=== PATIENT | male | born 1970 | race Caucasian/White ===

== ENCOUNTER 2024-01-13 02:48 | Emergency (ER) | payer SELFPAY ==
[2024-01-13 03:38] LABS: #Lymphocytes 0.5 thou/uL (1.20-3.40); #Monocytes 0.5 thou/uL (0.11-0.59); #Neutrophils 2.8 thou/uL (1.40-6.50); %Basophils 1.3 % (0.0-1.0); %Eosinophils 0.2 % (0.0-10.0); %Lymphocytes 13.7 % (21.0-51.0); %Monocytes 12.4 % (0.0-10.0); %Neutrophils 72.4 % (42.0-75.0)
[2024-01-13 03:39] LABS: Hematocrit 41.4 % (42.0-52.0); Hemoglobin 14.3 g/dL (14.0-18.0); Mean Corpuscular HGB CONC 34.5 g/dL (32.0-36.0); Mean Corpuscular Volume 101.4 fl (78.0-98.0); RBC Distribution Width 13.7 % (11.5-14.5); Red Blood Cell (RBC) Count 4.08 mill/uL (4.70-6.10); White Blood Cell (WBC) Count 3.8 10x3/uL (4.8-10.8)
[2024-01-13 03:47] LABS: INR-International Normal Ratio 2.5; Prothrombin Time 28.2 sec (12.0-14.7)
[2024-01-13 03:48] LABS: PTT 39.9 sec (22.9-36.1)
[2024-01-13 03:59] LABS: Anisocytosis SLIGHT = 6-15 cells (100X) (0-5/hpf); Burr Cells SLIGHT = 2-5 cells (100X) (0-1/hpf); MDiff Complete? YES; Macrocytosis SLIGHT = 6-15 cells (100X) (0-5/hpf); Mean Platelet Volume 10.7 fL (7.4-10.4); Platelet Adequacy Comment Appears Decreased; Platelet Count 73 10x3/uL (130-400)
[2024-01-13] MEDS ORDERED: Lactulose 20 GM (30 mL) UDCUP PO SCH (04:00)
[2024-01-13 04:06] LABS: Acetaminophen Less than 10 mcg/mL (10.0-30.0); Alcohol Less than 10.0 mg/dL (Less than 10); Lipase 25 U/L (8-78); Magnesium 1.4 mg/dL (1.6-2.6); Salicylate Less than 8.0 mg/dL (15.0-30.0)
[2024-01-13 04:08] LABS: ALT (SGPT) 48 U/L (8-55); AST (SGOT) 73 U/L (5-34); Albumin 3.3 g/dL (3.5-5.0); Alkaline Phosphatase 185 U/L (40-110); Anion Gap 20 mmol/L (10-20); BUN (Urea Nitrogen) 6 mg/dL (8.4-25.7); Bilirubin, Total 15.6 mg/dL (0.2-1.2); Calc. Creatinine Clearance 0 mL/min (70-130); Calcium 8.4 mg/dL (7.8-10.44); Carbon Dioxide 29 mmol/L (22-29); Chloride 93 mmol/L (98-107); Estimated GFR 105; Globulin 2.8 g/dL (2.4-3.5); Glucose 141 mg/dL (70-105); Protein, Total 6.1 g/dL (6.0-8.3); Sodium 139 mmol/L (136-145)
[2024-01-13 04:12] LABS: Critical Call Chemistry NUR.AF7 @ 0411; Potassium 2.6 mmol/L (3.5-5.1)
[2024-01-13] MEDS ORDERED: Potassium Chloride 20 MEQ (100 mL) BAG ONE ×2 (04:21→06:20)
[2024-01-13] MEDS ORDERED: Potassium Chloride 20 MEQ TAB ONE (04:21)
[2024-01-13] MEDS ORDERED: Magnesium 2 GM/50 ML BAG (IN WATER) ONE (04:55)
[2024-01-13 06:10] LABS: Lactic Acid 2.8 mmol/L (0.5-2.2)
[2024-01-13 06:34] LABS: Amphetamine Not Detected (NotDetected); Barbiturates Screen Not Detected (NotDetected); Benzodiazepine Screen Not Detected (NotDetected); Cocaine Metabolite Screen Not Detected (NotDetected); Methadone Not Detected (NotDetected); Methamphetamine Not Detected (NotDetected); Opiate Screen Not Detected (NotDetected); Oxycodone Screen Not Detected (NotDetected); Phencyclidine (PCP) Not Detected (NotDetected); THC/Cannabinoid Screen Not Detected (NotDetected); Tricyclic Screen Not Detected (NotDetected)
[2024-01-13 06:42] LABS: Bilirubin Moderate (Negative); Blood, Urine Negative (Negative); Clarity Clear (Clear); Glucose, Urine (Dipstick) Negative (Negative); Ketone, Urine Negative (Negative); Leukocyte Negative (Negative); Nitrite Negative (Negative); Protein, Urine (Dipstick) Negative (Neg-Trace); Specific Gravity, Urine 1.015 (1.005-1.030); Urobilinogen > or = 8.0 mg/dL (Less than 2); pH, Urine 6.5 (5.0-9.0)
[2024-01-13 06:45] LABS: Bacteria/HPF Rare-Few HPF (None Seen); CAUTI Indications for Culture Alt mental st,lethar; RBC/HPF 0-3 HPF (0-3); Squamous Epithelial 0-3 HPF (0-3); WBC/HPF 0-3 HPF (0-3)
[2024-01-13 06:46] LABS: Urine Culture Reflex No No
[2024-01-13] MEDS ORDERED: Sodium Chloride 0.9% 100 ML ONE (07:29)
[2024-01-13] MEDS ORDERED: cefTRIAXone (ROCEPHIN) 2 GM VIAL ONE (07:29)
== END 2024-01-13 08:25 | disposition short-term general hospital (02) ==
LOC: MADERS 02:48
DX: R41.82 Altered mental status, unspecified (principal); I21.4 Non-ST elevation (NSTEMI) myocardial infarction; E87.6 Hypokalemia; R17 Unspecified jaundice; F17.290 Nicotine dependence, other tobacco product, uncomplicated; Z95.0 Presence of cardiac pacemaker
CPT/HCPCS: 70450; 71260; 72125; 74177; 80053; 80306; 80307; 81001; 82140; 83605; 83690; 83735; 84484; 85025; 85610; 85730; 87040; 93005; 96365; 96366; 96368; J0696; J3475; J3480; J3490